=== PATIENT | male | born 1955 | race Caucasian/White ===

== ENCOUNTER 2018-12-02 20:57 | Emergency (ER) | payer OTHER ==
--- OUTSIDE RECORDS SUMMARY | 2018-12-02 21:07 | XMS REPORT | Summary of Care ---
:1955 Author Organization [facility] Address [address] [address] Care Team Providers Name Role Phone Bethany Jack MD Primary Care Provider Reason for Referral Refer to Department Only (Routine) Status Reason Specialty Diagnoses / Referred By Referred To Procedures Contact Contact Pending GASTROENTEROLOGY / Diagnoses Ulcerative rectosigmoiditis with complication (HCC) Awais Maria Gastroenterology Guerda Garcia DRIVER HELPER logy/Hepatol [address] [place] [address] Road Phone: [place], [place] [phone] Fax: Scheduling Instructions Is the patient on cpap machine?No Is the patient on oxygen?No BP 122/80 | Pulse 78 | Temp 97.3 F (36.3 C) | Ht 5' 7" (1.702 m) | Wt 152 lb 8 oz (69.2 kg) | BMI 23.88 kg/m BMI Readings from Last 4 Encounters: 10/11/18 : 23.88 kg/m 09/12/18 : 23.34 kg/m 07/18/18 : 23.81 kg/m 07/04/18 : 23.92 kg/m Controlled Substance Medications: Anticoagulant Medications: Psychiatric/Antianxiety Medications: Antiretroviral Medications: Reason for Visit Reason Comments Follow-up 1-month follow-up on ulcerative rectosigmoiditis Encounter Details Date Type Department Care Team Description 10/11/2018 Office Visit [facility] Gastroenterology/He Kim Payne NP rectosigmoiditis with patology [address] [facility] complication (HCC) [address] [facility] [place] [address] (Primary Dx) [place] [address] [phone] Allergies Active Allergy Reactions Severity Noted Date Comments Seasonal Unknown Reaction 06/10/2015 documented as of this encounter (statuses as of 10/11/2018) Medications Medication Sig Dispensed Refills Start End Date Status Date Omeprazole delayed Take 1 Cap by 30 Cap 11 Active rel cap 40 MG Oral mouth DAILY. 9 CAPSULE DELAYED RELEASEIndications: Gastroesophageal reflux disease without esophagitis ondansetron (ZOFRAN) TAKE 1 TABLET 30 Tab 0 Active 4 MG Oral BY MOUTH 9 TabIndications: EVERY 8 HOURS Ulcerative NEEDED FOR rectosigmoiditis with NAUSEA AND complication (HCC) VOMITING Mesalamine 1.2 g Oral TAKE 4 120 Tab 5 Active Tab EC TABLETS BY 9 MOUTH EVERY DAY AT 7 A.M. ON AN EMPTY STOMACH celeCOXIB (CELEBREX) TAKE 1 30 Cap 5 10/12/19 Discontinued 200 MG Oral Cap CAPSULE BY 9 19 MOUTH ONCE A DAY NEEDED FOR PAIN Tofacitinib Citrate Take 1 Tab by 60 Tab 1 10/10/19 Discontinued (XELJANZ) 10 MG Oral mouth TWICE 9 19 (Reorder) TabIndications: DAILY. Ulcerative rectosigmoiditis with complication (HCC) documented as of this encounter (statuses as of 10/11/2018) Active Problems Problem Noted Date Unresponsive episode 05/26/2018 Primary osteoarthritis of left hip 02/21/2017 Overview: Added automatically from request for surgery [id number] History of basal cell carcinoma 07/21/2016 Ulcerative colitis without complications 06/16/2016 Overview: Colonoscopy 07/2015 Rupture of right proximal biceps tendon 06/10/2016 History of colonic polyps 06/10/2015 Left hip pain 06/10/2015 Seasonal allergies 06/10/2015 Atopic dermatitis 06/10/2015 Umbilical abnormality 06/10/2015 documented as of this encounter (statuses as of 10/11/2018) Immunizations Name Administration Dates Next Due Influenza (IM) Preservative Free 03/21/2018, 11/29/2016 MMR VACCINE 10/26/2016 PNEUMOCOCCAL POLYSACCHARIDE VACCINE 09/30/2016 TDAP Vaccine 09/30/2016 documented as of this encounter Social History Tobacco Use Types Packs/Day Years Used Date Never Smoker Smokeless Tobacco: Never Used Alcohol Use Drinks/Week oz/Week Comments Yes 5-6 Cans of beer 5.0 - 6.0 Sex Assigned at Date Recorded Not on file Job Start Date Occupation Industry Not on file Not on file Not on file Travel History Travel Start Travel End No recent travel history available. documented as of this encounter Last Filed Vital Signs Vital Sign Reading Time Taken Comments Blood Pressure 122/80 10/11/2018 8:21 AM EDT Pulse 78 10/11/2018 8:21 AM EDT Temperature 36.3 10/11/2018 8:21 AM EDT C (97.3 F) Respiratory Rate - - Oxygen Saturation - - Inhaled Oxygen Concentration - - Weight 69.2 kg (152 lb 8 oz) 10/11/2018 8:21 AM EDT Height 170.2 cm (5' 7") 10/11/2018 8:21 AM EDT Body Mass Index 23.88 10/11/2018 8:21 AM EDT documented in this encounter Patient Instructions Patient InstructionsKim Maria NP - 10/11/2018 8:20 AM EDT1. Labs today 2. Stool sample as soon as you can provide 3. Will continue the Xeljanz at 10mg daily 4. Will need to reassess effect again in 1-2 months, by repeating the above testing 5. Will plan for colonoscopy at some time in the upcoming year Thank you for choosing the [facility] for your needs today! -Kim Maria N.PMary , Please call if you need to cancel or change your appt. time. Thank you for choosing [facility] for your health care needs, and for consulting with [facility] today. You may receive a survey following this visit, or after an upcoming hospital stay. As easy as it is to feel overloaded with surveys, we are required to send them out randomly and they do provide important feedback so that we may serve your needs in the best way. Please do take the few minutes required to complete the survey if you receive one. We get them too, after seeing the doctor, and they only take a few minutes to complete. documented in this encounter Progress Notes Kim Maria NP - 10/11/2018 8:20 AM EDT PATIENT:Johny Freeman : 1955 DATE OF SERVICE:10/11/2018 Chief Complaint Patient presents with Follow-up 1-month follow-up on ulcerative rectosigmoiditis REFERRING PROVIDER: Kim Maria PRIMARY CARE PHYSCIAN: Bethany Jack SUBJECTIVE: Johny Freeman is a very pleasant 63-y.o. male who presents for routine follow up of Ulcerative Colitis . Currently he moves his bowels 5-6 times per day, normal is 2 times per day. There has been no blood. Is again having nocturnal symptoms. He denies oral ulcers, skin ulcers, back pain, red eyes, burning or itching of eyes, vision changes, fevers, chills, night-sweats, weight loss, nausea, vomiting, melena, hematochezia, hematemesis, dysuria, pyuria, hematuria, joint pains, acholic or juanita colored stools or dark urine. Current Therapy: Xeljanz 10mg daily, and Lialda 4 caps daily Previously failed: Jimena, Iqra, Darrion, Lei Last colonoscopy: 2015 Past GI surgeries: none Smoking history: never QUISPE scoring = 4, indicating mild activity Past Medical History: Diagnosis Date Basal cell carcinoma face Environmental allergies spring, fall History of colon polyps Shingles Ulcerative colitis without complications (HCC) 06/16/2016 Colonoscopy 07/2015 Umbilical abnormality oozing Past Surgical History: Procedure Laterality Date ANOSCOPY COLONOSCOPY 2010 5 yr f/u hx polyps EGD 2010 [place] MANIPULATION HIP JOINT W ANESTHESIA 2010 hip resurfacing - right [place] RECONSTRUCT SCAPHOID CARPAL W PROSTHESIS Social History Socioeconomic History Marital status: Spouse name: Not on file Number of children: Not on file Years of education: Not on file Highest education level: Not on file Occupational History Not on file Social Needs Financial resource strain: Not on file Food insecurity: Worry: Not on file Inability: Not on file Transportation needs: Medical: Not on file Non-medical: Not on file Tobacco Use Smoking status: Never Smoker Smokeless tobacco: Never Used Substance and Sexual Activity Alcohol use: Yes Alcohol/week: 5.0 - 6.0 standard drinks Types: 5 - 6 Cans of beer per week Drug use: Yes Frequency: 7.0 times per week Types: Marijuana Sexual activity: Yes Lifestyle Physical activity: Days per week: Not on file Minutes per session: Not on file Stress: Not on file Relationships Social connections: Talks on phone: Not on file Gets together: Not on file Attends gnosticist service: Not on file Active member of club or organization: Not on file Attends meetings of clubs or organizations: Not on file Relationship status: Not on file Intimate partner violence: Fear of current or ex partner: Not on file Emotionally abused: Not on file Physically abused: Not on file Forced sexual activity: Not on file Other Topics Concern Back Care Not Asked Bike Helmet Not Asked Blood Transfusions Not Asked Caffeine Concern Not Asked Exercise Not Asked Hobby Hazards Not Asked International Travel Not Asked Service Not Asked Occupational Exposure Not Asked Seat Belt Not Asked Self-Exams Not Asked Sleep Concern Not Asked Special Diet Not Asked Stress Concern Not Asked Weight Concern Not Asked Social History Narrative Not on file Seasonal Current Outpatient Medications Medication Sig Mesalamine 1.2 g Oral Tab EC TAKE 4 TABLETS BY MOUTH EVERY DAY AT 7 A.M. ON AN EMPTY STOMACH Omeprazole delayed rel cap 40 MG Oral CAPSULE DELAYED RELEASE Take 1 Cap by mouth DAILY. ondansetron (ZOFRAN) 4 MG Oral Tab TAKE 1 TABLET BY MOUTH EVERY 8 HOURS NEEDED FOR NAUSEA AND VOMITING XELJANZ 10 MG Oral Tab TAKE 1 TABLET BY MOUTH TWICE A DAY No current facility-administered medications for this visit. REVIEW OF SYSTEMS Negative, except that mentioned above. OBJECTIVE: BP 122/80 | Pulse 78 | Temp 97.3 F (36.3 C) | Ht 5' 7" (1.702 m) | Wt 152 lb 8 oz (69.2 kg) | BMI 23.88 kg/m PHYSICAL EXAM GENERAL: alert, oriented, no acute distress. HEENT: No scleral icterus, MMM Psych: Affect normal Neck: no lymphadenopathy LUNGS: clear to auscultation bilaterally. HEART: regular rhythm, no murmurs, no gallops, no rubs. ABDOMEN: general exam: soft, non-tender, non-distended, without masses or organomegaly, normal active bowel sounds, Castro's sign negative. Extrmities: no edema Skin: clear Neuro: gait normal, a&o x 3 RECTAL: exam deferred. IMPRESSION/PLAN ICD-9-CM ICD-10-CM 1. Ulcerative rectosigmoiditis with complication (HCC) 556.3 K51.319 CBC NO DIFFERENTIAL COMPREHENSIVE METABOLIC PANEL SEDIMENTATION RATE C-REACTIVE PROTEIN CALPROTECTIN, STOOL STOOL CULTURE REFER TO GI COLONOSCOPY Patient Instructions 1. Labs today 2. Stool sample as soon as you can provide 3. Will continue the Xeljanz at 10mg daily 4. Will need to reassess effect again in 1-2 months, by repeating the above testing 5. Will plan for colonoscopy at some time in the upcoming year Thank you for choosing the [facility] for your needs today! -Kim TobiasPMary , Please call if you need to cancel or change your appt. time. Thank you for choosing [facility] for your health care needs, and for consulting with [facility] today. You may receive a survey following this visit, or after an upcoming hospital stay. As easy as it is to feel overloaded with surveys, we are required to send them out randomly and they do provide important feedback so that we may serve your needs in the best way. Please do take the few minutes required to complete the survey if you receive one. We get them too, after seeing the doctor, and they only take a few minutes to complete. AUTHOR: Kim Maria NP 10/11/2018 08:41 documented in this encounter Plan of Treatment Date Type Specialty Care Team Description 12/06/2018 Office Visit Gastroenterology Kim Maria NP [address] [address] [phone] Name Type Priority Associated Diagnoses Date/Time CBC NO DIFFERENTIAL Lab Routine Ulcerative rectosigmoiditis 10/11/2018 9: 02 AM with complication (HCC) EDT COMPREHENSIVE METABOLIC Lab Routine Ulcerative rectosigmoiditis 10/11/2018 9:02 AM PANEL with complication (HCC) EDT SEDIMENTATION RATE Lab Routine Ulcerative rectosigmoiditis 10/11/2018 9: 02 AM with complication (HCC) EDT C-REACTIVE PROTEIN Lab Routine Ulcerative rectosigmoiditis 10/11/2018 9: 02 AM with complication (HCC) EDT Name Type Priority Associated Diagnoses Order Schedule CBC NO DIFFERENTIAL Lab Routine Ulcerative Expected: rectosigmoiditis with 10/10/2018 complication (HCC) (Approximate), Expires: 05/08/2019 COMPREHENSIVE Lab Routine Ulcerative Expected: METABOLIC PANEL rectosigmoiditis with 10/10/2018 complication (HCC) (Approximate), Expires: 10/11/2019 SEDIMENTATION RATE Lab Routine Ulcerative Expected: rectosigmoiditis with 10/10/2018 complication (HCC) (Approximate), Expires: 10/11/2019 C-REACTIVE PROTEIN Lab Routine Ulcerative Expected: rectosigmoiditis with 10/10/2018 complication (HCC) (Approximate), Expires: 10/11/2019 CALPROTECTIN, STOOL Lab Routine Ulcerative Expected: rectosigmoiditis with 10/11/2018 complication (HCC) (Approximate), Expires: 04/13/2019 STOOL CULTURE Lab Routine Ulcerative 1 Occurrences rectosigmoiditis with starting complication (HCC) 10/11/2018 until 04/13/2019 COLONOSCOPY Diagnostic/Surgic Routine Ulcerative Ordered: al Procedures rectosigmoiditis with 10/11/2018 complication ([facility]) CALPROTECTIN, STOOL Lab Routine Ulcerative Expected: rectosigmoiditis with 11/11/2018 complication (HCC) (Approximate), Expires: 12/11/2018 C-REACTIVE PROTEIN Lab Routine Ulcerative Expected: rectosigmoiditis with 11/11/2018 complication (HCC) (Approximate), Expires: 12/11/2018 SEDIMENTATION RATE Lab Routine Ulcerative Expected: rectosigmoiditis with 11/11/2018 complication (HCC) (Approximate), Expires: 12/11/2018 CBC NO DIFFERENTIAL Lab Routine Ulcerative Expected: rectosigmoiditis with 11/11/2018 complication (HCC) (Approximate), Expires: 12/11/2018 COMPREHENSIVE Lab Routine Ulcerative Expected: METABOLIC PANEL rectosigmoiditis with 11/11/2018 complication (HCC) (Approximate), Expires: 12/11/2018 Name Type Priority Associated Diagnoses Order Schedule REFER TO GI Referral Routine Ulcerative rectosigmoiditis with Expected: , complication (HCC) Expires: 10/12/2019 Health Maintenance Due Date Last Done Comments DEPRESSION SCREENING 1969 ZOSTER IMMUNIZATION SERIES (1 07/18/2007 of 2) INFLUENZA VACCINE (#1) 2018 03/21/2018, 11/29/2016 LIPID DISORDER SCREENING 09/12/2023 09/11/2018, 07/18/2018, 06/22/2016 COLONOSCOPY SCREENING 07/29/2025 07/30/2015 PNEUMOCOCCAL 0-64 YRS Aged Out 09/30/2016 No longer eligible based on patient's age to complete this topic HPV IMMUNIZATION SERIES Aged Out No longer eligible based on patient's age to complete this topic MENINGOCOCCAL VACCINE IMM Aged Out No longer eligible based on patient's age to complete this topic documented as of this encounter Results Not on filedocumented in this encounter Visit Diagnoses Diagnosis Ulcerative rectosigmoiditis with complication (HCC) - Primary documented in this encounter Insurance Payer Benefit Plan / Subscriber ID Effective Phone Address Type Group Dates COMMERCIAL COMMERCIAL xxxx-xxxx 2017-Pres Commercial GENERIC GENERIC PLAN ent (Home) [facility] [phone] [place], [place] (Work) [id number] documented as of this encounter Advance Directives Code Status Date Activated Date Inactivated Comments Full Code 05/26/2018 9:58 PM 05/27/2018 1:45 PM Does the patient have decision making capacity? Yes Order was discussed with: Patient I discussed all options and patient/surrogate requested and agreed to: Full Code
--- OUTSIDE RECORDS SUMMARY | 2018-12-02 21:07 | XMS REPORT | Summary of Care ---
:1955 Author Organization [facility] Address [address] [facility] [place] [address] Care Team Providers Name Role Phone Bethany Jack Primary Care Provider Reason for Visit Reason Comments Follow-up 2-month follow-up on crohn's. Encounter Details Date Type Department Care Team Description 11/27/2018 Office Visit Awais Maria, Ulcerative rectosigmoiditis with complication (HCC) (Primary Dx); Gastroenterology/He Kim Payne NP Tick bite, initial encounter; patology 1 [facility] Functional gastrointestinal symptoms [address] [facility] [place] [address] [place] [address] [phone] Allergies Active Allergy Reactions Severity Noted Date Comments Seasonal Unknown Reaction 06/10/2015 documented as of this encounter (statuses as of 11/27/2018) Medications Medication Sig Dispensed Refills Start End Date Status Date Omeprazole delayed Take 1 Cap by 30 Cap 11 Active rel cap 40 MG Oral mouth DAILY. 9 CAPSULE DELAYED RELEASEIndications: Gastroesophageal reflux disease without esophagitis ondansetron (ZOFRAN) Take 4 mg by 30 Tab 0 Active 4 MG Oral mouth EVERY 9 TabIndications: EIGHT HOURS Ulcerative NEEDED rectosigmoiditis with (nausea). complication (HCC) PROCEDURE (MEDICATION Take 1 Each 30 Each 0 Active COMMUNICATION by mouth 9 ORDER)Indications: EVERY Ulcerative Colitis BEDTIME. Indications: Ulcerated Colon Tofacitinib Citrate 5 Take 1 Tab by 60 Tab 1 Active MG Oral mouth TWICE 9 TabIndications: DAILY. Ulcerative rectosigmoiditis with complication (HCC) doxycycline Take 200 mg 2 Tab 0 Active (VIBRAMYCIN) 100 MG by mouth 9 Oral TabIndications: DAILY. Tick bite, initial encounter Mesalamine 1.2 g Oral Take 4 Tabs 120 Tab 5 Active Tab EC by mouth 9 DAILY. Mesalamine 1.2 g Oral TAKE 4 120 Tab 5 11/28/19 Discontinued Tab EC TABLETS BY 9 19 (Reorder) MOUTH EVERY DAY AT 7 A.M. ON AN EMPTY STOMACH XELJANZ 10 MG Oral TAKE 1 TABLET 60 Tab 1 11/28/19 Discontinued TabIndications: BY MOUTH 9 19 Ulcerative TWICE A DAY rectosigmoiditis with complication (HCC) predniSONE Take 50mg 245 Tab 0 11/28/19 Discontinued (DELTASONE) 5 MG Oral daily x 7 9 19 Tab days,40mg daily x 7 d.,30mg daily x 7 d.,20mg daily x 7 d., 15mg daily x 7 d.,10mg daily x 7 d., 5mg daily x7 d documented as of this encounter (statuses as of 11/27/2018) Active Problems Problem Noted Date Unresponsive episode 05/26/2018 Primary osteoarthritis of left hip 02/21/2017 Overview: Added automatically from request for surgery [id number] History of basal cell carcinoma 07/21/2016 Ulcerative colitis without complications 06/16/2016 Overview: Colonoscopy 07/2015 Rupture of right proximal biceps tendon 06/10/2016 History of colonic polyps 06/10/2015 Left hip pain 06/10/2015 Seasonal allergies 06/10/2015 Atopic dermatitis 06/10/2015 Umbilical abnormality 06/10/2015 documented as of this encounter (statuses as of 11/27/2018) Immunizations Name Administration Dates Next Due Influenza [...] Sign Reading Time Taken Comments Blood Pressure 112/72 11/27/2018 8:29 AM EDT Pulse 72 11/27/2018 8:29 AM EDT Temperature 36.7 11/27/2018 8:29 AM EDT C (98 F) Respiratory Rate - - Oxygen Saturation - - Inhaled Oxygen Concentration - - Weight 67.4 kg (148 lb 8 oz) 11/27/2018 8:29 AM EDT Height 170.2 cm (5' 7") 11/27/2018 8:29 AM EDT Body Mass Index 23.26 11/27/2018 8:29 AM EDT documented in this encounter Patient Instructions Patient InstructionsKim Maria NP - 11/27/2018 8:20 AM EDT1. Schedule colonoscopy as soon as possible to assess the colitis 2. Decrease the Xeljanz to 5mg twice daily 3. Take prophylactic Doxycycline 200mg once for the tick bite 4. future plans pending colonoscopy results Thank you for choosing the [facility] for your needs today! -Kim Maria NBessy , Please call if you need to cancel or change your appt. time. Thank you for choosing [facility] for your health care needs, and for consulting with Health system today. You may receive a survey following [...] encounter Progress Notes Kim Maria NP - 11/27/2018 8:20 AM EDT PATIENT:Johny Freeman : 1955 DATE OF SERVICE:11/27/2018 Chief Complaint Patient presents with Follow-up 2-month follow-up on crohn's. REFERRING PROVIDER: Kim Maria PRIMARY CARE PHYSCIAN: Bethany Jack SUBJECTIVE: Johny Freeman is a very pleasant 63-y.o. male who presents for routine follow up of Ulcerative Colitis, with functional GI symptoms overlap. Started new therapy of Xeljanz 3 Months ago, initially felt improvement with resolution of bleeding, but has continues with frequency. Serum and stool inflammatory markers have been climbing. Component Latest Ref Rng & Units 10/11/2018 10/11/2018 10/13/2018 11/17/201811/17/201811/17/2018 9:02 AM 9:02 AM 7:26 AM 4:50 AM 9:17 AM 9:17 AM C-Reactive Protein <1.00 mg/dl 2.00 (H) 2.30 (H) ESR 0 - 20 MM/HR 55 (H) 43 (H) CALPROTECTIN, STOOL mcg/g 797.7 (H) 1238.6 (H) Currently he moves his bowels 8 times per day, normal is 2 times per day. Since the onset of colitis4 years ago he has not had significant improvement in quantity of BM, reports he has numerous trips to the [place] to pass gas and mucus. BMs have been formed without blood. He also reports excessive gas, and AM belching with dry heaving at times. This has been worse in the past few weeks but he admits to being stressed over insurance coverage, which recently has resolved and so to are his UGI symptoms. He has also had an increase in joint pains, has been taking Tylenol for this. This morning awoke with a tick bite, reports he walked his dog last evening. Tick was not engorged. There has been no blood or nocturnal symptoms. He denies oral ulcers, skin ulcers, back pain, red eyes, burning or itching of eyes, vision changes, fevers , chills, night-sweats, weight loss, nausea, melena, hematochezia, hematemesis , dysuria, pyuria, hematuria, acholic or juanita colored stools or darkurine. Current Therapy: Xeljanz 10mg BID, has been on Lialda until he ran out 1 week ago Last stool study results: 09/2018 Influenza, Pneumovax, Tdap, Hep B vaccination: UTD Dermatology annual screening: done Last colonoscopy: 2015, needs repeat, awaiting insurance approval Past GI surgeries: none Smoking history: none QUISPE scoring = 5 Failed therapies: Topical Mesalamines, steroid enemas and suppositories, Budesonide, Prednisone, Humira, and Remicade Past Medical History: Diagnosis Date Basal cell carcinoma face Environmental allergies spring, fall History of colon polyps Shingles Ulcerative colitis without complications (HCC) 06/16/2016 Colonoscopy 07/2015 Umbilical abnormality oozing Past Surgical History: Procedure Laterality Date ANOSCOPY COLONOSCOPY 2010 5 yr f/u hx polyps EGD 2010 OR MANIPULATION HIP JOINT W ANESTHESIA 2010 hip resurfacing - right OR RECONSTRUCT SCAPHOID CARPAL W PROSTHESIS Social History [...] file Gets together: Not on file Attends congregational service: Not on file Active member of [...] file Seasonal Current Outpatient Medications Medication Sig doxycycline (VIBRAMYCIN) 100 MG Oral Tab Take 200 mg by mouth DAILY. Mesalamine 1.2 g Oral Tab EC TAKE 4 TABLETS BY MOUTH EVERY DAY AT 7 A.M. ON AN EMPTY STOMACH Omeprazole delayed rel cap 40 MG Oral CAPSULE DELAYED RELEASE Take 1 Cap by mouth DAILY. ondansetron (ZOFRAN) 4 MG Oral Tab Take 4 mg by mouth EVERY EIGHT HOURS NEEDED (nausea). PROCEDURE (MEDICATION COMMUNICATION ORDER) Take 1 Each by mouth EVERY BEDTIME. Indications: Ulcerated Colon Tofacitinib Citrate 5 MG Oral Tab Take 1 Tab by mouth TWICE DAILY. No current facility-administered medications for this visit. REVIEW OF SYSTEMS Negative, except that mentioned above. OBJECTIVE: BP 112/72 | Pulse 72 | Temp 98 F (36.7 C) | Ht 5' 7" (1.702 m) | Wt 148 lb 8 oz (67.4 kg) | BMI 23.26 kg/m PHYSICAL EXAM GENERAL: alert, oriented, no acute distress. HEENT: No scleral icterus, MMM Psych: Affect normal Neck: no lymphadenopathy LUNGS: clear to auscultation bilaterally. HEART: regular rhythm, no murmurs, no gallops, no rubs. ABDOMEN: general exam: soft, mild LLQ-tenderness, non-distended, without masses or organomegaly, normal active bowel sounds, Castro's sign negative. Extrmities: no edema Skin: clear Neuro: gait normal, a&o x 3 RECTAL: exam deferred. IMPRESSION/PLAN ICD-9-CM ICD-10-CM 1. Ulcerative rectosigmoiditis with complication (HCC) 556.3 K51.319 Tofacitinib Citrate 5 MG Oral Tab 2. Tick bite, initial encounter 919.4 W57.XXXA doxycycline (VIBRAMYCIN) 100 MG Oral Tab E906.4 3. Functional gastrointestinal symptoms 536.9 K30 Due to multiple failed therapies, will need to assess disease activity vs. Functional overlap beforechanging therapy. Patient Instructions 1. Schedule colonoscopy as soon as possible to assess the colitis 2. Decrease the Xeljanz to 5mg twice daily 3. Take prophylactic Doxycycline 200mg once for the tick bite 4. future plans pending colonoscopy results Thank you for choosing the [facility] for your needs today! -Kim Maria N.P. , Please call if you need to cancel or change your appt. time. Thank you for choosing [facility] for your health care needs, and for consulting with Health system today. You may receive a survey following [...] minutes to complete. AUTHOR: Kim Maria NP 11/27/2018 09:02 documented in this encounter Plan of Treatment Date Type Specialty Care Team Description 12/07/2018 GI Procedure Gastroenterology Iliana Harris MD [address] [place] [address] [phone] Health Maintenance Due Date Last Done Comments [...] Ulcerative rectosigmoiditis with complication (HCC) - Primary Tick bite, initial encounter Functional gastrointestinal symptoms Unspecified functional disorder of stomach documented in this encounter Insurance Payer Benefit Plan / Subscriber ID Effective Dates Phone Address Type Group [employer] COMMERCIAL AETNA xxxxxxxxxx 2018-Present [employer] (Home) [place] [id number] [place], [place] (Work) [id number] documented as of this encounter Advance Directives Code Status Date Activated Date Inactivated Comments Full Code 05/26/2018 9:58 PM 05/27/2018 1:45 PM Does the patient have decision making capacity? Yes Order was discussed with: Patient I discussed all options and patient/surrogate requested and agreed to: Full Code
[2018-12-02] MEDS ORDERED: NS 0.9% 1000 ML** 2,000 ML IV ONE (21:32)
[2018-12-02] MEDS ORDERED: Dicyclomine CAP* 10 MG PO ONE (21:32)
[2018-12-02] MEDS ORDERED: Ondansetron INJ* 2 MG/ML VIAL IV ONE (21:32)
--- NOTE | 2018-12-02 21:37 | ED ---
GI/ HPI - HPI Summary HPI Summary: This patient is a 63 year old M presenting to [facility] accompanied by with a chief complaint of constant vomiting since 1500, today. Pt has had watery diarrhea, fever, cramping in abdomen and chills. Pt has PMHx of ulcerative colitis which is currently not responding well to medication and he is constantly changing medications; however he reports his current symptoms are different from normal, as he usually only throws up in the morning. He has vomited up everything he has tried to eat today. He reports he felt fine on . Pt thinks he may have Lyme disease, as he was bitten by a tick on . However he did go to his PCP and received prophylaxis. - History of Current Complaint Chief Complaint: EDNauseaVomitDiarrh Time Seen by Provider: 12/02/18 21:25 Stated Complaint: TICK BITE W/NAUSEA PER PT Hx Obtained From: Patient Onset/Duration: Started Hours Ago Timing: Constant Severity: Severe Current Severity: Severe Pain Intensity: 8 Location of Pain: Diffuse Pain Characteristics: Cramping Associated Signs and Symptoms: Positive: Nausea, Vomiting, Diarrhea, Fever, Chills, Abdominal Pain Aggravating Factor(s): Nothing - Allergy/Home Medications Allergies/Adverse Reactions: Allergies Allergy/AdvReac Type Severity Reaction Status Date / Time No Known Allergies Allergy Verified 04/27/13 13:32 Home Medications: Home Medications Mesalamine 4 tab PO DAILY 12/02/18 [History Confirmed 12/02/18] Omeprazole 40 mg PO DAILY 12/02/18 [History Confirmed 12/02/18] Tofacitinib Citrate [Xeljanz] 5 mg PO BID 12/02/18 [History Confirmed 12/02/18] PMH/Surg Hx/FS Hx/Imm Hx Endocrine/Hematology History: Denies: Hx Diabetes, Hx Thyroid Disease Cardiovascular History: Denies: Hx Hypertension Respiratory History: Denies: Hx Asthma, Hx Chronic Obstructive Pulmonary Disease (COPD) GI History: Reports: Hx Ulcer Musculoskeletal History: Reports: Other Musculoskeletal History - hip problems Sensory History: Reports: Hx Contacts or Glasses - glasses Opthamlomology History: Reports: Hx Contacts or Glasses - glasses - Cancer History Cancer Type, Location and Year: basal cell carcinoma - Surgical History Surgery Procedure, Year, and Place: right hip replacement 2009, tonsillectomy as a child Infectious Disease History: No Infectious Disease History: Reports: Hx Shingles Denies: Hx Hepatitis, Hx Human Immunodeficiency Virus (HIV), History Other Infectious Disease, Traveled Outside the [place] in Last 30 Days - Family History Known Family History: Negative: Diabetes - Social History Alcohol Use: Weekly Substance Use Type: Reports: None Smoking Status (MU): Never Smoked Tobacco Review of Systems Positive: Fever, Chills Positive: Abdominal Pain, Vomiting, Diarrhea, Nausea All Other Systems Reviewed And Are Negative: Yes Physical Exam - Summary Physical Exam Summary: Appearance: Well-appearing, Well-nourished, lying in bed comfortably Skin: Warm, dry, no obvious rash Eyes: sclera anicteric, no conjunctival pallor ENT: mucous membranes moist, pharynx appears normal Neck: Supple, nontender Respiratory: Clear to auscultation, no signs of respiratory distress Cardiovascular: Normal S1, S2. No murmurs. Normal distal pulses in tibial and radial bilaterally. Abdomen: Soft, nontender, normal active bowel sounds present Musculoskeletal: Normal, Strength/ROM Intact Neurological: A&Ox3, awake and alert, mentation is normal, speech is fluent and appropriate Psychiatric: affect is normal, does not appear anxious or depressed Triage Information Reviewed: Yes Vital Signs On Initial Exam: Initial Vitals Temp Pulse Resp BP Pulse Ox 98.7 F 66 18 142/77 95 12/02/18 20:58 12/02/18 20:58 12/02/18 20:58 12/02/18 20:58 12/02/18 20:58 Vital Signs Reviewed: Yes Procedures - Sedation Patient Received Moderate/Deep Sedation with Procedure: No Diagnostics - Vital Signs Vital Signs Temp Pulse Resp BP Pulse Ox 12/02/18 20:58 98.7 F 66 18 142/77 95 - Laboratory Result Diagrams: 12/02/18 21:53 12/02/18 21:53 Lab Statement: Any lab studies that have been ordered have been reviewed, and results considered in the medical decision making process. Re-Evaluation - Re-Evaluation First Eval Re-Evaluation Time: 00:02 Comment: Discussed results and plan of care with pt. GIGU Course/Dx - Course Course Of Treatment: This patient is a 63 year old M presenting to [facility] accompanied by with a chief complaint of constant vomiting since 1500, today. Pt has had watery diarrhea, fever, cramping in abdomen and chills. Pt has PMHx of ulcerative colitis which is currently not responding well to medication and he is constantly changing medications; however he reports his current symptoms are different from normal, as he usually only throws up in the morning. He has vomited up everything he has tried to eat today. He reports he felt fine on 12/01/18. Pt thinks he may have Lyme disease, as he was bitten by a tick on 11/26/18. However he did go to his PCP and received prophylaxis. Physical exam findings. nml. Blood work obtained. WBC is 16.2, Hgb is 12.5, Hct is 38, MPV is 6.6, BUN/Creatinine Ratio is 20.4, Glucose is 152, C-Reactive Protein is 20.17. In the ED course the patient was given Bentyl, fluids, and Zofran. Patient will be discharged. The patient is agreeable with this plan. - Diagnoses Provider Diagnoses: Acute vomiting, Gastroenteritis Discharge ED - Sign-Out/Discharge Documenting (check all that apply): Patient Departure - Discharge - Discharge Plan Condition: Improved Disposition: HOME Prescriptions: Ondansetron ODT TAB* [Zofran 4 MG Odt TAB*] 8 mg PO Q6H PRN #12 tab.odt PRN Reason: Nausea Patient Education Materials: Acute Nausea and Vomiting (ED) Referrals: Waleska Huddleston MD [Primary Care Provider] - - Billing Disposition and Condition Condition: IMPROVED Disposition: Home - Attestation Statements Document Initiated by Janine: Yes Documenting Scribe: Jackie Petersen Provider For Whom Janine is Documenting (Include Credential): Gevoanni Tapia MD Scribe Attestation: Jackie Kiser, scribed for Geovanni Tapia MD on 12/03/18 at 2054. Scribe Documentation Reviewed: Yes Provider Attestation: The documentation as recorded by the Jackie king accurately reflects the service I personally performed and the decisions made by me, Geovanni Taipa MD Status of Scribe Document: Viewed
[2018-12-02 22:01] LABS: ABS Lymphocytes 0.5 10^3/ul (1.0-4.8); ABS Monocytes 0.8 10^3/ul (0-0.8); ABS Neutrophils 14.8 10^3/ul (1.5-7.7); Eosinophil % 0.1 %; Hematocrit 38 % (42-52); Hemoglobin 12.5 g/dL (14.0-18.0); Lymphocyte % 3.1 %; Mean Corpuscular HGB Conc 33 g/dL (31-36); Mean Corpuscular Hemoglobin 28 pg (27-31); Mean Corpuscular Volume 84 fL (80-94); Mean Platelet Volume 6.6 fL (7.4-10.4); Nucleated Red Blood Cells % 0.1; Platelet Count 353 10^3/uL (150-450); Red Cell Distribution Width 14 % (10-15); White Blood Count 16.2 10^3/uL (3.5-10.8)
[2018-12-02 22:19] LABS: Albumin 4.2 g/dL (3.2-5.2); Albumin/Globulin Ratio 1.2 (1-3); BUN/Creatinine Ratio 20.4 (8-20); C Reactive Protein 20.17 mg/L (<8.01); Calcium 9.3 mg/dL (8.6-10.3); EGFR African American 99.9 (>60); EGFR Non-African American 82.6 (>60); Globulin 3.5 g/dL (2-4); Potassium 3.5 mmol/L (3.5-5.0); Total Bilirubin 0.5 mg/dL (0.2-1.0); Total Protein 7.7 g/dL (6.4-8.9)
[2018-12-03 00:58] VITALS: BP 136/80
== END 2018-12-03 00:55 | disposition home or self-care (01) ==
LOC: ED 20:57
DX: K52.9 Noninfective gastroenteritis and colitis, unspecified (principal); R11.2 Nausea with vomiting, unspecified; R10.9 Unspecified abdominal pain; Z96.641 Presence of right artificial hip joint
CPT/HCPCS: 36415; 80053; 85025; 86140; 96361; 96374; 99282; A9270-GY; J2405

== ENCOUNTER 2019-02-01 07:30 | Inpatient (IN) | payer OTHER ==
--- NOTE | 2019-01-23 13:05 | HP ---
HISTORY AND PHYSICAL: DATE OF ADMISSION/SURGERY: 02/01/19 DATE OF OFFICE VISIT: 01/22/19 SURGEON: Kimberlyn Martin MD * (DICTATED BY GABBY CURTIS) PROCEDURE: Left total hip arthroplasty. CHIEF COMPLAINT: Left hip pain. HISTORY OF PRESENT ILLNESS: Mr. Freeman is a 63-year-old gentleman with end- stage osteoarthritis of the left hip. He has failed conservative treatment and elected to proceed with a left total hip arthroplasty. PAST MEDICAL HISTORY: Ulcerative colitis, GERD and basal cell carcinoma. PAST SURGICAL HISTORY: Right hip resurfacing, tonsillectomy. CURRENT MEDICATIONS: 1. Tylenol as needed. 2. Omeprazole 40 mg a day. 3. Xeljanz 10 mg. 4. Lialda 1.2 g twice a day. 5. Naltrexone 4.5 mg q.h.s. 6. Mesalamine 1.2 g 4 tabs daily. 7. Zofran 4 mg daily. ALLERGIES: No known drug allergies. FAMILY HISTORY: Breast cancer and Parkinson's disease. SOCIAL HISTORY: He is a 63-year-old gentleman lives with his spouse. He does use marijuana and denies use of cigarettes and uses alcohol rarely. REVIEW OF SYSTEMS: A complete 14-point review of systems was reviewed with the patient, was positive for GERD. He denies a history of DVT, PE, hepatitis, HIV , or anesthesia problems. PHYSICAL EXAMINATION GENERAL: He is well developed, well nourished, in no acute distress. VITAL SIGNS: He is 66 inches tall, weighs 147 pounds, his blood pressure 118/60 , his heart rate 72. HEENT: Normocephalic, atraumatic. NECK: Supple. No palpable lymph nodes. PULMONARY: The lungs are clear to auscultation bilaterally. CARDIO: Regular rate and rhythm. Strong S1 and S2. ABDOMEN: Soft, nontender, nondistended. NEUROLOGICAL: He is alert and oriented x3. MUSCULOSKELETAL: Left lower extremity: The skin is intact. There are no open wounds or abrasions. He walks with an antalgic type gait, favoring his left hip. He has decreased internal and external rotation of the left hip. He is able to dorsiflex and plantarflex. He has a 2+ dorsalis pedis pulse and intact sensation. ASSESSMENT AND PLAN: Mr. Freeman is a 63-year-old gentleman with end-stage osteoarthritis of the left hip. He has failed conservative treatment and elected to proceed with a left total hip arthroplasty. The surgery is scheduled for 02/01/[address] Martin discussed the risks and benefits of the surgery at today's visit and all of his questions were answered. He will follow with Dr. Martin 2 weeks after the surgery. GABBY CURTIS [id number]/CPS #: [id number] MTDD
[~2019-02-01 07:30] MED LIST: Acetaminophen TAB* 325 MG PO ONE; Buffered Lidocaine 1% SYRIN* 1 ML/SYRINGE INTRADERM ONE; Dexamethasone TAB* 4 MG PO ONE; DiMENhydriNATE IV* 50 MG/ML VIAL IV PUSH PRN; Famotidine IV* 10 MG/ML 2 ML (20 mg) IV ONE; Gabapentin CAP(*) 300 MG PO ONE; Lactated Ringers 1000 ML Bag* 1,000 ML IV SCH; Naloxone* 0.4 MG/ML 1 ML VIAL IV PRN; Ondansetron ODT TAB* 4 MG PO ONE; PROCHLORPERAZINE INJ 5 MG/ML 2 ML VIAL IV PRN; Tranexamic Acid 1,000 MG in NS 0.9% 50 ML* (outpatient use) IV SCH; celeCOXIB CAP* 200 MG PO ONE; oxyCODONE TAB* 5 MG TAB PO PRN
[2019-02-01] MEDS ORDERED: Acetaminophen TAB* 325 MG ONE (08:50)
[2019-02-01] MEDS ORDERED: Dexamethasone TAB* 4 MG ONE (08:50)
[2019-02-01] MEDS ORDERED: Ondansetron ODT TAB* 4 MG ONE ×2 (08:50→10:06)
[2019-02-01] MEDS ORDERED: Gabapentin CAP(*) 300 MG ONE (08:50)
[2019-02-01] MEDS ORDERED: celeCOXIB CAP* 200 MG ONE (08:51)
[2019-02-01] MEDS ORDERED: ceFAZolin 2 GM in NS PREMIX(*) 2 GM/100 ML BAG IVPB ONE (08:51)
[2019-02-01] MEDS ORDERED: Famotidine IV* 10 MG/ML 2 ML (20 mg) ONE (08:51)
--- OUTSIDE RECORDS SUMMARY | 2019-02-01 09:38 | XMS REPORT | Continuity of Care Document ---
:1955 External Reference #:[id number] Author Name Mariah Joyce MD (transmitted by agent of provider Ivon Galdamez) Address [address], [place] [address] Care Team Providers Name Role Phone Prosper Lofton MD - Hospitalist Care Team Information Edge Inker [phone] Problems Active Problems Provider Date Localized, primary osteoarthritis of the pelvic Kimberlyn Martin M.D. Onset: region and thigh Social History Type Date Description Comments Sex Unknown ETOH Use Occasionally consumes alcohol Tobacco Use Start: Unknown Patient has never smoked Smoking Status Reviewed: 01/01/19 Patient has never smoked Exercise Type/Frequency Exercises regularly Allergies, Adverse Reactions, Alerts Description No Known Drug Allergies Medications Active Medications SIG Qnty Indications Ordering Provider Date Tylenol PM 2 by mouth every Unknown Tablets night at bedtime as needed Omeprazole Take 1 Capsule By Unknown 40mg Capsules Mouth Every Day DR Pham Unknown 10mg Tablets Lialda 2 twice a day Unknown 1.2gm Tablets Ondansetron HCL one by mouth Unknown 4mg every 8 hours as Tablets needed for nausea Naltrexone Low Dose Unknown 4.5mg Powder Immunizations CPT Code Status Date Vaccine Reaction Lot # 92495 Given 01/01/2019 Influenza Virus Vaccine, no immediate reaction. [id number] Quadrivalent (Cciiv4), dg Derived From Cell Vital Signs Date Vital Result Comment 01/01/2019 8:04am Height 66.25 inches 5'6.25" Weight 149.00 lb Heart Rate 60 /min BP Systolic Sitting 116 mmHg BP Diastolic Sitting 77 mmHg Body Temperature 97.0 F O2 % BldC Oximetry 97 % BMI (Body Mass Index) 23.9 kg/m2 12/13/2018 10:32am Height 66.25 inches 5'6.25" Weight 147.00 lb Heart Rate 72 /min BP Systolic 128 mmHg BP Diastolic 80 mmHg Body Temperature 97.6 F Pain Level 6 BMI (Body Mass Index) 23.5 kg/m2 Results Test Acquired Date Facility Test Result H/L Range Note Comp Metabolic 12/02/2018 [facility] Sodium 138 mmol/L Normal 135-[address] [place] [address] [phone] Potassium 3.5 mmol/L Normal 3.5-5.0 Chloride 103 mmol/L Normal 101-111 Co2 Carbon Dioxide 25 mmol/L Normal 22-32 Anion Gap 10 mmol/L Normal 2-11 Glucose 152 mg/dL High 70-100 Blood Urea Nitrogen 19 mg/dL Normal 6-24 Creatinine 0.93 mg/dL Normal 0.67-1.17 BUN/Creatinine Ratio 20.4 High 8-20 Calcium 9.3 mg/dL Normal 8.6-10.3 Total Protein 7.7 g/dL Normal 6.4-8.9 Albumin 4.2 g/dL Normal 3.2-5.2 Globulin 3.5 g/dL Normal 2-4 Albumin/Globulin Ratio 1.2 Normal 1-3 Total Bilirubin 0.50 mg/dL Normal 0.2-1.0 Alkaline Phosphatase 97 U/L Normal 34-104 Alt 17 U/L Normal 7-52 Ast 26 U/L Normal 13-39 Egfr Non- 82.6 >60 Egfr 99.9 >60 1 Laboratory test 12/02/2018 [facility] C Reactive 20.17 mg/L High <8.[address] [place] [address] [phone] CBC Auto Diff 12/02/2018 [facility] White Blood 16.2 High 3.5- 10.[address] Count 10^3/[place] [address] [phone] Red Blood Count 4.50 10^6/uL Normal 4.18-5.48 Hemoglobin 12.5 g/dL Low 14.0-18.0 Hematocrit 38 % Low 42-52 Mean Corpuscular Volume 84 fL Normal 80-94 Mean Corpuscular Hemoglobin 28 pg Normal 27-31 Mean Corpuscular HGB Conc 33 g/dL Normal 31-36 Red Cell Distribution Width 14 % Normal 10-15 Platelet Count 353 10^3/uL Normal 150-450 Mean Platelet Volume 6.6 fL Low 7.4-10.4 Abs Neutrophils 14.8 10^3/uL High 1.5-7.7 Abs Lymphocytes 0.5 10^3/uL Low 1.0-4.8 Abs Monocytes 0.8 10^3/uL Normal 0-0.8 Abs Eosinophils 0.0 10^3/uL Normal 0-0.6 Abs Basophils 0.0 10^3/uL Normal 0-0.2 Abs Nucleated RBC 0.0 10^3/uL Granulocyte % 91.4 % Lymphocyte % 3.1 % Monocyte % 5.1 % Eosinophil % 0.1 % Basophil % 0.3 % Nucleated Red Blood Cells % 0.1 1 Because ethnic data is not always readily available, this report includes an eGFR for both -Americans and non- Americans. The National Kidney Disease Education Program (NKDEP) does not endorse the use of the MDRD equation for patients that are not between the ages of 18 and 70, are , have extremes of body size, muscle mass, or nutritional status, or are non- or non-. According to the National Kidney Foundation, irrespective of diagnosis, the stage of the disease is based on the level of kidney function: Stage Description GFR(mL/min/1.73 m(2)) 1 Kidney damage with normal or decreased GFR 90 2 Kidney damage with mild decrease in GFR 60-89 3 Moderate decrease in GFR 30-59 4 Severe decrease in GFR 15-29 5 Kidney failure <15 (or dialysis) Procedures Date Code Description Status 01/01/2019 87254 EKG Tracing & Interpretation Completed Medical Devices Description No Information Available Encounters Type Date Location Provider Dx Diagnosis Office Visit 12/13/2018 [facility], S70.02xA Contusion of 10:15a at [facility] left hip, initial encounter M16.12 Unilateral primary osteoarthritis, left hip M25.552 Pain in left hip Office Visit 09/27/2018 9:30a [facility], M25.552 Pain in left at [place] M.DMary hip M16.12 Unilateral primary osteoarthritis, left hip Assessments Date Code Description Provider 01/01/2019 Z00.00 Encounter for general adult medical Mariah Joyce MD examination without abnormal findings 01/01/2019 Z01.818 Encounter for other preprocedural examination Mariah Joyce MD 01/01/2019 K51.90 Ulcerative colitis, unspecified, without Mariah Joyce MD complications 12/13/2018 S70.02xA Contusion of left hip, initial encounter Kimberlyn Martin M.D. 12/13/2018 M16.12 Unilateral primary osteoarthritis, left hip Kimberlyn Martin M.D. 12/13/2018 M25.552 Pain in left hip Kimberlyn Martin M.D. 09/27/2018 M25.552 Pain in left hip Kimberlyn Martin M.D. 09/27/2018 M16.12 Unilateral primary osteoarthritis, left hip Kimberlyn Martin M.D. Plan of Treatment Future Appointment(s):01/22/2019 8:00 am - Kimberlyn Martin M.D. at [facility] at Xorqbk3202/01/2019 2:30 pm - Kimberlyn Martin M.D. at [facility] at Yfwmdj2701/01/2019 - Mariah Joyce MDZ00.00 Encounter for general adult medical examination without abnormal vxarqwxfY35.818 Encounter for other preprocedural examinationNew Labs:Urinalysis Profile, Ordered: Comments:Please get your blood and urine test done.We will call you regarding your test results.K51.90 Ulcerative colitis, unspecified, without complicationsNew Labs:CBC Auto Diff, Ordered: 01/01/19Comp Metabolic Panel, Ordered: 01/01/19Hemoglobin A1c (Glyco HGB), Ordered: 01/01/19Lipid Profile ( Trig/Chol/HDL), Ordered: 01/01/19C Reactive Protein, Ordered: 01/01/19Comments: Follow up with Dr. Lai.Referral:Kaiden Lai M.D., Gastroenterology Functional Status Description No Information Available Mental Status Description No Information Available Referrals Refer to Reason for Referral Status Appt Date Kaiden Lai M.D. Patient requesting colonoscopy prior to Created appointment. He has appointmetn with Dr. Lai in late january. [address] [place] [address] [phone]
--- OUTSIDE RECORDS SUMMARY | 2019-02-01 09:38 | XMS REPORT | Continuity of Care Document ---
:1955 External Reference #:[id number] Author Name Kimberlyn Martin M.D. (transmitted by agent of provider Jyoti Parker) Address [address] [place] [address] Care Team Providers Name Role Phone Prosper Lofton MD - Hospitalist Care Team Information Retail Bakery Manager [phone] Problems Active Problems Provider Date Localized, primary osteoarthritis of the pelvic Kimberlyn Martin M.D. Onset: region and thigh Social History Type Date Description Comments Sex Unknown ETOH Use Occasionally consumes alcohol Tobacco Use Start: Unknown Patient has never smoked Smoking Status Reviewed: 01/22/19 Patient has never smoked Exercise Type/Frequency Exercises regularly Allergies, Adverse Reactions, Alerts Description No Known Drug Allergies Medications Active Medications SIG Qnty Indications Ordering Provider Date Celecoxib 1 tablet daily or 30caps Z01.818 [facility], 01/01/2019 200mg as needed. Capsules Tylenol PM 2 by mouth every Unknown Tablets night at bedtime as needed Omeprazole Take 1 Capsule By Unknown 40mg Mouth Every Day Capsules DR Pham Unknown 10mg Tablets Lialda 2 twice a day Unknown 1.2gm Tablets Ondansetron HCL one by mouth Unknown 4mg every 8 hours as Tablets needed for nausea Naltrexone Low Dose Unknown 4.5mg Powder Immunizations CPT Code Status Date Vaccine Reaction Lot # [id number] Given 01/01/2019 Influenza Virus Vaccine, no immediate reaction. [id number] Quadrivalent (Cciiv4), dg Derived From Cell Vital Signs Date Vital Result Comment 01/22/2019 8:01am Height 66.25 inches 5'6.25" Weight 147.00 lb Heart Rate 48 /min BP Systolic 118 mmHg BP Diastolic 60 mmHg Respiratory Rate 18 /min Body Temperature 97.0 F Pain Level 5 BMI (Body Mass Index) 23.5 kg/m2 01/01/2019 8:04am Height 66.25 inches 5'6.25" Weight 149.00 lb Heart Rate 60 /min BP Systolic Sitting 116 mmHg BP Diastolic Sitting 77 mmHg Body Temperature 97.0 F O2 % BldC Oximetry 97 % BMI (Body Mass Index) 23.9 kg/m2 Results Test Acquired Date Facility Test Result H/L Range Note CBC Auto 01/03/2019 [facility] White Blood 8.1 10^3/uL Normal 3.5-10.[address] [place] [address] [phone] Red Blood Count 4.17 10^6/uL Low 4.18-5.48 Hemoglobin 11.6 g/dL Low 14.0-18.0 Hematocrit 35 % Low 42-52 Mean Corpuscular Volume 85 fL Normal 80-94 Mean Corpuscular Hemoglobin 28 pg Normal 27-31 Mean Corpuscular HGB Conc 33 g/dL Normal 31-36 Red Cell Distribution Width 14 % Normal 10-15 Platelet Count 359 10^3/uL Normal 150-450 Mean Platelet Volume 7.1 fL Low 7.4-10.4 Abs Neutrophils 5.7 10^3/uL Normal 1.5-7.7 Abs Lymphocytes 1.8 10^3/uL Normal 1.0-4.8 Abs Monocytes 0.4 10^3/uL Normal 0-0.8 Abs Eosinophils 0.1 10^3/uL Normal 0-0.6 Abs Basophils 0.1 10^3/uL Normal 0-0.2 Abs Nucleated RBC 0.0 10^3/uL Granulocyte % 69.7 % Lymphocyte % 22.7 % Monocyte % 5.3 % Eosinophil % 1.6 % Basophil % 0.7 % Nucleated Red Blood Cells % 0.0 Comp Metabolic 01/03/2019 [facility] Sodium 138 mmol/L Normal 135-[address] [place] [address] [phone] Potassium 4.0 mmol/L Normal 3.5-5.0 Chloride 105 mmol/L Normal 101-111 Co2 Carbon Dioxide 27 mmol/L Normal 22-32 Anion Gap 6 mmol/L Normal 2-11 Glucose 94 mg/dL Normal 70-100 Blood Urea Nitrogen 15 mg/dL Normal 6-24 Creatinine 0.88 mg/dL Normal 0.67-1.17 BUN/Creatinine Ratio 17.0 Normal 8-20 Calcium 9.3 mg/dL Normal 8.6-10.3 Total Protein 7.0 g/dL Normal 6.4-8.9 Albumin 3.8 g/dL Normal 3.2-5.2 Globulin 3.2 g/dL Normal 2-4 Albumin/Globulin Ratio 1.2 Normal 1-3 Total Bilirubin 0.40 mg/dL Normal 0.2-1.0 Alkaline Phosphatase 84 U/L Normal 34-104 Alt 10 U/L Normal 7-52 Ast 16 U/L Normal 13-39 Egfr Non- 88.0 >60 Egfr 106.5 >60 1 Laboratory test 01/03/2019 [facility] Hemoglobin A1c 6.0 % High 4.0-5.6 2 finding 101 (Glyco HGB) [place] [address] [phone] Lipid Profile 01/03/2019 [facility] Triglycerides 125 3 (Trig/Chol/HDL) 101 mg/[place] [address] [phone] Cholesterol 154 mg/dL 4 HDL Cholesterol 37.5 mg/dL 5 LDL Cholesterol 92 mg/dL 6 Laboratory test 01/03/2019 [facility] C Reactive 15.60 mg/L High <8.01 finding [address] [place] [address] [phone] Urinalysis 01/03/2019 [facility] Urine Color Lynsey Profile [address] [place] [address] [phone] Urine Appearance Cloudy Urine Specific [place] 1.027 Normal 1.010-1.030 Urine pH 5.0 Normal 5-9 Urine Urobilinogen Negative Negative Urine Ketones Negative Negative Urine Protein Negative Negative Urine Leukocytes Negative Negative Urine Blood 1+ Abnormal Negative * * Abnormal Negative 7 Urine Nitrite Negative Negative Urine Bilirubin Negative Negative Urine Glucose Negative Negative Urine White Blood Cell Absent Absent Urine Red Blood Cell 1+(3-5/hpf) Abnormal Absent Urine Bacteria Absent Absent Urine Squamous Epithelial Cell Present Abnormal Absent Comp Metabolic 12/02/2018 [facility] Sodium 138 mmol/L Normal 135-[address] [place] [address] [phone] Potassium 3.5 mmol/L Normal 3.5-5.0 Chloride 103 [...] Egfr Non- 82.6 >60 Egfr 99.9 >60 8 Laboratory test 12/02/2018 [facility] C Reactive 20.17 mg/L High <8.[address] [place] [address] [phone] CBC Auto Diff 12/02/2018 [facility] White Blood 16.2 High 3.5- 10.[address] Count 10^3/[place] [address] [phone] Red Blood Count 4.50 10^6/uL Normal 4.18-5.48 [...] 15-29 5 Kidney failure <15 (or dialysis) 2 Therapeutic target for the treatment of diabetes mellitus patients is <7% HBA1C, and in selective patients <6.0%. Please refer to [place] [employer] diabetic care guidelines for further information. 3 Desirable: <150 Borderline High: 150-199 High: 200-499 Very High: >500 4 Desirable: <200 Borderline High: 200-239 High: >239 5 Low: <40 Desirable: 40-60 High: >60 6 Desirable: <100 Near Optimal: 100-129 Borderline High: 130-159 High: 160-189 Very High: >189 7 *Ascorbic acid is present which may interfere with detection of blood. 8 Because ethnic data is not always readily [...] dialysis) Procedures Date Code Description Status 01/01/2019 31862 EKG Tracing & Interpretation Completed Medical Devices Description No Information Available Encounters Type Date Location Provider Dx Diagnosis Office Visit 12/13/2018 [facility] Kimberlyn Martin, S70.02xA Contusion of 10:15a at [place] M.D. left hip, initial encounter M16.12 Unilateral primary osteoarthritis, left hip M25.552 Pain in left hip Office Visit 09/27/2018 9:30a [facility] M25.552 Pain in left at [facility] hip M16.12 Unilateral primary osteoarthritis, left hip Assessments Date Code Description Provider 01/22/2019 M16.12 Unilateral primary osteoarthritis, left hip Kimberlyn Martin M.D. 01/22/2019 M25.552 Pain in left hip Kimberlyn Martin M.D. 01/01/2019 Z01.818 Encounter for other preprocedural examination Mariah Joyce MD 01/01/2019 M16.12 Unilateral primary osteoarthritis, left hip Mariah Joyce MD 01/01/2019 K51.90 Ulcerative colitis, unspecified, without Mariah Joyce MD complications 01/01/2019 R00.1 Bradycardia, unspecified Mariah Joyce MD 01/01/2019 Z23 Encounter for immunization Mariah Joyce MD 12/13/2018 S70.02xA Contusion of left hip, initial encounter Kimberlyn Martin M.D. 12/13/2018 M16.12 Unilateral primary osteoarthritis, left hip Kimberlyn Martin M.D. 12/13/2018 M25.552 Pain in left hip Kimberlyn Martin M.D. 09/27/2018 M25.552 Pain in left hip Kimberlyn Martin M.D. 09/27/2018 M16.12 Unilateral primary osteoarthritis, left hip Kimberlyn Martin M.D. Plan of Treatment Future Appointment(s):02/01/2019 3:30 pm - Manny Vences PA-C at [facility] at Dlufmf8502/01/2019 3:30 pm - GABBY Reid at [facility] at Pwgkew0502/01/2019 3:30 pm - Kimberlyn Martin M.D. at [facility] at Pemuyn5401/22/2019 - Kimberlyn Martin M.D.M16.12 Unilateral primary osteoarthritis, left hipFollow up:Follow up: 2 weeks after gqnvgnhO60.552 Pain in left hip Functional Status Description No Information Available Mental Status Description No Information Available Referrals Refer to Dr Reason for Referral Status Appt Date Kaiden Lai M.D. Patient requesting colonoscopy prior to Sent appointment. He has appointmetn with Dr. Lai in late january. [address] [place], [place] [address] [phone]
--- OUTSIDE RECORDS SUMMARY | 2019-02-01 09:39 | XMS REPORT | Continuity of Care Document ---
:1955 External Reference #:[id number] Author Name Kimberlyn Martin M.D. (transmitted by agent of provider Ivon Galdamez) Address [address] [place] [address] Care Team Providers Name Role Phone Bethany Jack MD - Family Care Team Information Human Resources Team Member Medicine Problems Active Problems Provider Date Localized, primary osteoarthritis of the pelvic Kimberlyn Martin M.D. Onset: region and thigh Social History Type Date Description Comments Sex Unknown ETOH Use Occasionally consumes alcohol Tobacco Use Start: Unknown Patient has never smoked Smoking Status Reviewed: 12/13/18 Patient has never smoked Exercise Type/Frequency Exercises regularly Allergies, Adverse Reactions, Alerts Description No Known Drug Allergies Medications Active Medications SIG Qnty Indications Ordering Provider Date Tylenol PM 2 by mouth every Unknown Tablets night at bedtime as needed Omeprazole Take 1 Capsule By Unknown 40mg Capsules Mouth Every Day DR Pham Unknown 10mg Tablets Lialda 2 twice a day Unknown 1.2gm Tablets DR Goldberg Description No Information Available Vital Signs Date Vital Result Comment 12/13/2018 10:32am Height 66.25 inches 5'6.25" Weight 147.00 lb Heart Rate 72 /min BP Systolic 128 mmHg BP Diastolic 80 mmHg Body Temperature 97.6 F Pain Level 6 BMI (Body Mass Index) 23.5 kg/m2 09/27/2018 10:09am Height 66.25 inches 5'6.25" Weight 157.25 lb Heart Rate 76 /min BP Systolic 126 mmHg BP Diastolic 74 mmHg Respiratory Rate 12 /min Pain Level 2 BMI (Body Mass Index) 25.2 kg/m2 Results Test Acquired Date Facility Test Result H/L Range Note Comp Metabolic 12/02/2018 [facility] Sodium 138 mmol/L Normal 135-[address] [place] [address] [phone] Potassium 3.5 mmol/L Normal 3.5-5.0 Chloride 103 [...] Egfr 99.9 >60 1 Laboratory test 12/02/2018 [facility] C Reactive 20.17 mg/L High <8.[address] [place] [address] [phone] CBC Auto Diff 12/02/2018 [facility] White Blood 16.2 High 3.5- 10.[address] Count 10^3/[place] [address] [phone] Red Blood Count 4.50 10^6/uL Normal 4.18-5.48 [...] 5 Kidney failure <15 (or dialysis) Procedures Description No Information Available Medical Devices Description No Information Available Encounters Type Date Location Provider Dx Diagnosis Office Visit [facility]/13[facility]2018 [facility] M16.12 [facility] M25.552 Pain in left hip Office Visit 09/27/2018 9:30a [facility] Kimberlyn Martin M25.552 [facility]12 Unilateral primary osteoarthritis, left hip Assessments Date Code Description Provider 12/13/2018 M16.12 Unilateral primary osteoarthritis, left hip Kimberlyn Martin M.D. 12/13/2018 M25.552 Pain in left hip Kimberlyn Martin M.D. 09/27/2018 M25.552 Pain in left hip Kimberlyn Martin M.D. 09/27/2018 M16.12 Unilateral primary osteoarthritis, left hip Kimberlyn Martin M.D. Plan of Treatment Future Appointment(s):12/15/2018 9:00 am - Prosper Lofton MD at [facility] - [address] 03/25/2018 8:00 am - Kimberlyn Martin M.D. at [facility] at Sbtkux1602/01/2019 2:30 pm - Kimberlyn Martin M.D. at [facility] at Jplzzi0012/13/2018 - Kimberlyn Martin M.D.M16.12 Unilateral primary osteoarthritis, left hipNew Xrays:MRI Hip Left W/O, Ordered: 12/13/18Follow up: Follow up: after MRIM25.552 Pain in left hipNew Xrays:Hip Left 2 Views And Pelvis [address] - [address], Ordered: 12/13/18 Functional Status Description No Information Available Mental Status Description No Information Available Referrals Description No Information Available
[2019-02-01] MEDS ORDERED: Midazolam* 1 MG/ML 5 ML VIAL (5 MG) ONE (11:32)
[2019-02-01] MEDS ORDERED: KETAMINE HCL* 50 MG/ML 10 ML VIAL ONE (11:32)
[2019-02-01] MEDS ORDERED: fentaNYL* 50 MCG/ML 2 ML VIAL (100 MCG VIAL) ONE ×3 (11:32→16:58)
[2019-02-01 11:34] LABS: INR 1.23 (0.82-1.09)
[2019-02-01] MEDS ORDERED: ROPIVACAINE 5 MG/ML 30 ML BTL (0.5%) ONE (13:03)
[2019-02-01] MEDS ORDERED: Rocuronium* 10 MG/ML VIAL ONE (13:45)
[2019-02-01] MEDS ORDERED: HYDROmorphone INJ1* 1 MG/ML SYRINGE ONE ×2 (14:25→16:27)
[2019-02-01] MEDS ORDERED: Lidocaine 2% PF * 5 ML VIAL ONE (15:17)
[2019-02-01] MEDS ORDERED: Propofol* 10 MG/ML 20 ML BTL ONE ×2 (15:17→15:50)
[2019-02-01] MEDS ORDERED: Glycopyrrolate IV* 0.2 MG/ML 1 ML VIAL ONE (15:17)
[2019-02-01] MEDS ORDERED: Neostigmine Methylsulfate* 1 MG/ML 10 ML VIAL (1 mg/ml) ONE (15:17)
[2019-02-01] MEDS ORDERED: Ondansetron ODT TAB* 4 MG PO PRN (16:01)
[2019-02-01] MEDS ORDERED: Morphine INJ* 2 MG/ML 1 ML SYRINGE (TWO MG - NEW SYRINGE VERSION) IV PRN (16:01)
[2019-02-01] MEDS ORDERED: Cyclobenzaprine TAB* 10 MG PO PRN (16:01)
[2019-02-01] MEDS ORDERED: oxyCODONE/Acetamin 5/325 MG* TAB PO PRN (16:01)
[2019-02-01] MEDS ORDERED: Ondansetron INJ* 2 MG/ML VIAL IV PRN (16:01)
[2019-02-01] MEDS ORDERED: Magnesium Hydroxide LIQ* 30 ML UDC PO PRN (16:01)
[2019-02-01] MEDS ORDERED: Acetaminophen TAB* 325 MG PO PRN (16:01)
[2019-02-01] MEDS ORDERED: diPHENhydraMINE IV* 50 MG/ML 1 ml VIAL (BENADRYL) IV PRN (16:01)
[2019-02-01] MEDS ORDERED: diPHENhydraMINE PO* 25 MG PO PRN (16:01)
[2019-02-01] MEDS ORDERED: SIMETHICONE PO ONE (16:05)
[2019-02-01] MEDS: HYDROmorphone INJ1* 1 MG/ML SYRINGE IV PRN ×3 (16:28→16:40)
[2019-02-01] MEDS: fentaNYL* 50 MCG/ML 2 ML VIAL (100 MCG VIAL) IV PRN ×5 (16:29→16:59)
[2019-02-01] MEDS: Lactated Ringers 1000 ML Bag* 1,000 ML IV SCH (17:45)
[2019-02-01] MEDS ORDERED: Ondansetron INJ* 2 MG/ML VIAL ONE (17:57)
[2019-02-01] MEDS: oxyCODONE/Acetamin 5/325 MG* TAB PO PRN ×2 (18:45→23:01)
--- NOTE | 2019-02-01 19:01 | OP ---
Operative Report - Blank - Operative Report Date of Operation: 02/01/19 Note: NOEMY LINDSAY 1955 Date Of Surgery: 02/01/19 Kimberlyn Martin MD Senior Quality Manager: Betito PIERRE did help throughout the procedure with preparation of the hip, wound retraction, manipulation of the hip, and wound closure. Anesthesiologist: Jeremías Motta MD Anesthesia Type: Spinal Preoperative Diagnosis: Left severe degenerative osteoarthritis of the hip Postoperative Diagnosis: As above Procedure Performed: Left Total Hip Arthroplasty Complications: None Specimen: Femoral head and acetabular reamings sent to pathology. Hardware used: This is uncemented [place] total hip arthroplasty hardware for the femur a size 5 accolade II 127 neck angle femoral component, for the acetabulum a size 52E trident II tritanium cluster hole shell, one 15 mm screw, for the insert a size 36E trident X3 polyethylene insert, and for the femoral head a size 36 +0 ceramic biolox V40 femoral head. Brief history/Indication: NOEMY LINDSAY was known in clinic and had a history of severe left hip pain. He failed conservative treatment with anti- inflammatories, pain pills, intra-articular injections and physical therapy. He elected to undergo left total hip arthroplasty due to continued pain and decreased quality of life. Radiographs showed severe end stage osteoarthritis of the hip with bone on bone contact. Informed consent was obtained from the patient. He understood the risks of surgery included but were not limited to: bleeding, infection, damage to nearby structures, intraoperative fracture, nerve palsy, failure of the hardware, early loosening, stiffness or loss of motion, dislocation, leg length discrepancy, anesthesia complications, stroke, heart attack, blood clot and . He wished to proceed. Intra-Operative findings: Intraoperatively the patient was noted to have severe loss of cartilage of the acetabulum and femoral head. Description of the Procedure: NOEMY LINDSAY was identified in the preanesthesia unit. His left hip was marked as the correct operative side. Informed consent was signed and placed in the chart. The patient was taken to the operating room and placed under anesthesia without complication. A ramos catheter was placed. The patient was placed on the peg board with all bony prominences well padded. The left lower extremity was prepped and draped in the usual sterile fashion. Preoperative time -out was made to correctly identify the patient, side and site. Appropriate intraoperative antibiotics were given within one hour of incision. A standard posterior incision was made and carried sharply down to the lateral fascia. A new 10 blade was used to make an incision in the fascia in line with the skin incision. A charnley retractor was placed. The piriformis and conjoined tendons were identified and elevated off the posterolateral femur using electrocautery. These were tagged with number 5 Ethibond. Next electrocautery was used to make a posterolateral capsular flap and this was tagged with number 5 Ethibonds. The hip was carefully dislocated. Lesser trochanter to the center of the femoral head was measured at 60 mm. The oscillating saw was used to make the femoral neck cut. The femoral head was carefully removed. The femur was retracted anteriorly and the acetabular retractors were placed. Long-handled knife was used to sharply remove any remaining labrum from the acetabular rim. The acetabulum was sequentially reamed up to a size 52. A bleeding subchondral bone bed was obtained. A trial liner was placed and had excellent fit and stability. A 52E cup with one screw was placed and had excellent stability with appropriate anteversion and abduction angle. A size 36E liner was impacted into the acetabular shell. The liner was checked for stability and was stable. Next attention was turned to preparation of the femoral canal. A canal finder was used to enter the proximal femur. The femoral canal was sequentially broached up to a size 5 femoral broach trial. A trial neck and 36 + 0 trial femoral head was chosen. Lesser trochanter to center of the femoral head measurement was satisfactory. The hip was reduced and taken through a range of motion. The hip was stable in all positions with good soft tissue tension and appropriate leg lengths. The hip was dislocated and all trials were removed. The final implant chosen was a accolade II size 5. This stem was impacted into the femoral canal without difficulty. The stem was stable with appropriate anteversion. The femoral head chosen was a 36 +0 ceramic head. The head was impacted onto the femoral neck without difficulty. The final lesser trochanter to center of the femoral head measurement was satisfactory. The hip was reduced and taken through a range of motion. The hip was stable in all positions with good soft tissue tension and appropriate leg lengths. The hip was copiously irrigated with sterile saline. The previously tagged capsule and tendons were repaired to the posterolateral femur through two trochanteric drill holes. The lateral fascia layer was closed using number 1 vicryls. The rest of the incision was closed in a layered fashion using 0 and 2-0 vicryls. The skin was closed using 3-0 monocryl suture and Dermabond. Sterile adaptic, 4x4s and paper tape was used to cover the incision. The patients anesthesia was reversed without difficulty. He was taken to the PACU in stable condition. Intended weight-bearing will be as tolerated with posterior hip precautions.
[2019-02-01] MEDS ORDERED: NALTREXONE PO SCH (21:00)
[2019-02-01] MEDS ORDERED: MELATONIN PO SCH (21:00)
[2019-02-01] MEDS ORDERED: PYRIDOXINE HCL PO SCH (21:00)
[2019-02-01] MEDS: Magnesium Hydroxide LIQ* 30 ML UDC PO SCH (21:02)
[2019-02-01] MEDS: oxyCODONE TAB* 5 MG TAB PO PRN (21:02)
[2019-02-01] MEDS: Docusate CAP* 100 MG PO SCH (21:02)
[2019-02-01] MEDS: TOFACITINIB CITRATE 5 MG PO SCH (21:49)
[2019-02-01] MEDS: ceFAZolin 1 GM ADVAN(*) 1 GM in NS 0.9% 50 ML* 50 ML IVPB SCH (22:13)
[2019-02-02] MEDS: Lactated Ringers 1000 ML Bag* 1,000 ML IV SCH (04:03)
[2019-02-02] MEDS: oxyCODONE/Acetamin 5/325 MG* TAB PO PRN ×3 (04:04→12:25)
[2019-02-02] MEDS: Ondansetron ODT TAB* 4 MG SL PRN ×2 (04:04→13:01)
[2019-02-02] MEDS: ceFAZolin 1 GM ADVAN(*) 1 GM in NS 0.9% 50 ML* 50 ML IVPB SCH ×2 (06:08→14:08)
[2019-02-02] MEDS: oxyCODONE TAB* 5 MG TAB PO PRN ×3 (06:13→14:39)
[2019-02-02 07:05] LABS: Hematocrit 29 % (42-52); Hemoglobin 9.8 g/dL (14.0-18.0); Mean Platelet Volume 6.9 fL (7.4-10.4); Platelet Count 350 10^3/uL (150-450)
[2019-02-02 07:21] LABS: Calcium 8.7 mg/dL (8.6-10.3); EGFR African American 97.5 (>60); EGFR Non-African American 80.6 (>60); Potassium 4.4 mmol/L (3.5-5.0)
[2019-02-02] MEDS: Magnesium Hydroxide LIQ* 30 ML UDC PO SCH (08:07)
[2019-02-02] MEDS: Docusate CAP* 100 MG PO SCH (08:07)
[2019-02-02] MEDS: TOFACITINIB CITRATE 5 MG PO SCH (08:08)
[2019-02-02] MEDS ORDERED: Apixaban* 2.5 MG TAB PO SCH (09:00)
[2019-02-02] MEDS ORDERED: Vitamin THERAPEUTIC TAB PO SCH (09:00)
--- NOTE | 2019-02-02 10:27 | PN ---
Progress Note - Progress Note Date of Service: 02/02/19 SOAP: Subjective: [Pt was seen today sitting up in bed. States that he is doing well. Pain is well controlled. Denies any chest pain, SOB, nausea, vomiting. He states he would like to go home today. ] Objective: [MSK:LLE: Inspection of the left hip reveals dressing is c/d/i. Dressing is changed. Incision is c/d/i without drainage or purulence. +df/pf. NVI distally. 2+ DP pulse. ] Vital Signs Temp 99.7 F 02/02/19 08:15 Pulse 99 02/02/19 08:15 Resp 18 02/02/19 10:32 BP 144/79 02/02/19 08:15 Pulse Ox 100 02/02/19 08:15 Intake & Output 02/01/19 02/02/19 02/02/19 18:59 06:59 18:59 Intake Total 1632 590 Output Total 650 275 Balance 982 315 Weight 143 lb 6.4 oz Intake: IV Fluids 1032 535 ABX - CEFAZOLIN 52 LR 980 535 IVPB 55 ABX - CEFAZOLIN 55 Oral 600 Output: Urine 275 Abdalla 650 Assessment: [POD 1 LTHA] Plan: PT/OT Continue with pain medication Continue with Eliquis Possible DC today should PT go well ]
--- NOTE | 2019-02-02 15:11 | DS ---
Orthopedic Discharge Summary - Discharge Summary Date of Admission:02/01/19 Date of Discharge: 02/02/2019 Date of Surgery: 02/01/2019 Attending Orthopedic Provider: Dr. Martin Pre-operative Diagnosis: Left hip osteoarthritis Operative Procedure: Left total hip arthroplasty Disposition of Patient: Home Condition of Patient: Good History: NOEMY LINDSAY is a 63 year old M with years of increasingly severe left hip pain. Patient has failed conservative management and has elected to undergo a left total hip replacement Hospital Course: NOEMY was admitted to [facility] on 02/01/19. Patient underwent a left total hip replacement without complication followed by a brief recovery in PACU and transfer to the Short Stay Surgical Unit in stable condition. Our hospitalist service, physical therapy and occupational therapy also participated in this patients care. Post-op day 1: patient was alert and in no acute distress. Dressing was clean, dry and intact. Operative extremity dorsiflexion and plantarflexion intact, sensation intact to light touch distally , DP2+. Dressing was changed, incision was clean, dry and intact. Patient was deemed to be medically and orthopedically stable for discharge. Physical therapy goals were met. Home Medications Medication Instructions Recorded Confirmed Type Mesalamine 4 tab PO QAM 12/02/18 01/22/19 History Omeprazole 40 mg PO QAM 12/02/18 01/22/19 History Tofacitinib Citrate Xeljanz 5 mg PO BID 12/02/18 01/22/19 History Acetaminophen/Diphenhydramine 2 tab PO BEDTIME 01/22/19 01/22/19 History [Acetaminophen-Diphenhyd 500-25] Celebrex CAP* 1 cap PO QAM 01/22/19 01/22/19 History L.acidoph,Paracasei, B.lactis 1 each PO QPM 01/22/19 01/22/19 History [Probiotic] Melatonin/Pyridoxine HCl (B6) 1 tab PO BEDTIME 01/22/19 02/01/19 History [Melatonin 5 mg Tablet] Naltrexone TAB* 4.5 mg PO BEDTIME 01/22/19 01/22/19 History Ondansetron ODT TAB* [Zofran 4 MG 8 mg SL Q6H PRN 01/22/19 01/22/19 History Odt TAB*] Simethicone [Gas-X] 1 cap PO 02/01/19 History Apixaban* [Eliquis*] 2.5 mg PO BID tab 02/02/19 Rx oxyCODONE/Acetamin 5/325 MG* 1 tab PO Q4H PRN tab 02/02/19 Rx [Percocet 5/325 TAB*] oxyCODONE/Acetamin 5/325 MG* 2 tab PO Q4H PRN tab 02/02/19 Rx [Percocet 5/325 TAB*] Discharge Instructions following Orthopedic Surgery: Activity: * Weight Bearing as tolerated * Continue physical therapy and occupational therapy exercises as shown Wound care: * OK to shower on post-op day 3, no bathing, swimming, or submerging wound. * Use gentle soap, pat dry. Cover with gauze, CHELO wrap or tape. * Visiting home nurse to do wound checks. Call Orthopedic office for: * Increased drainage * Redness * Increased pain * Fever Go to ER with shortness of breath or chest pain. Diet: * Regular diet * Increase fluids and fiber to prevent constipation. * Continue to use stool softeners, call office if no bowel motion within 48 hours. Medications See Home Medication List in your packet for medications that you should take after discharge. DVT Prophylaxis: Eliquis Dosin.5 mg, 1 tab every 12 hours x 30 days Pain Control: Percocet Dosin/325 mg 1-2 tabs by mouth every 4-6 hours as needed for pain. Maximum of 10 tabs per day. Please note that Percocet contains Tylenol (acetaminophen). Maximum daily dose of Tylenol is 4000 mg from all sources. Zofran 4 mg as needed for nausea Antibiotics are required prior to any dental work. FOLLOW UP: Follow up with [Mario] Within 10-14 days, call for appointment Please call our office with any questions or concerns ([phone]) Hip replacements: Continue Hip Precautions- do not cross legs or bend greater than 90 degrees/squat
[2019-02-02 15:46] VITALS: BP 120/65
== END 2019-02-02 16:15 | disposition home or self-care (01) | DRG 470 ==
LOC: AA 09:35 → SSU 17:45
PROVIDERS: ADMIT Orthopaedic Surgery Adult Reconstructive Orthopaedic Surgery; ATTEND Orthopaedic Surgery Adult Reconstructive Orthopaedic Surgery
PROC: 0SRB04A Replacement of Left Hip Joint with Ceramic on Polyethylene Synthetic Substitute, Uncemented, Open Approach (ICD-10-PCS; principal; 2019-02-01 12:45)
DX: M16.12 Unilateral primary osteoarthritis, left hip (principal); K51.90 Ulcerative colitis, unspecified, without complications; K21.9 Gastro-esophageal reflux disease without esophagitis; Z85.828 Personal history of other malignant neoplasm of skin; Z79.899 Other long term (current) drug therapy
CPT/HCPCS: 36415; 72170; 80048; 85014; 85018; 85049; 85610; 88304; 88311; A9270-GY; C1713; C1776; J0690; J1170; J2250; J2405; J2704; J2710; J2795; J3010; J8540

== ENCOUNTER 2019-04-05 09:00 | Day surgery (SDC) | payer OTHER ==
[~2019-04-05 09:00] MED LIST changes: -Acetaminophen TAB* 325 MG PO ONE; -Dexamethasone TAB* 4 MG PO ONE; -DiMENhydriNATE IV* 50 MG/ML VIAL IV PUSH PRN; -Famotidine IV* 10 MG/ML 2 ML (20 mg) IV ONE; -Gabapentin CAP(*) 300 MG PO ONE; -Naloxone* 0.4 MG/ML 1 ML VIAL IV PRN; -Ondansetron ODT TAB* 4 MG PO ONE; -PROCHLORPERAZINE INJ 5 MG/ML 2 ML VIAL IV PRN; -Tranexamic Acid 1,000 MG in NS 0.9% 50 ML* (outpatient use) IV SCH; -celeCOXIB CAP* 200 MG PO ONE; -oxyCODONE TAB* 5 MG TAB PO PRN
[2019-04-05] MEDS ORDERED: Acetaminophen TAB* 325 MG PO PRN (09:19)
[2019-04-05] MEDS ORDERED: Acetaminophen TAB* 325 MG ONE (10:06)
[2019-04-05] MEDS ORDERED: Midazolam* 1 MG/ML 5 ML VIAL (5 MG) ONE (10:42)
[2019-04-05] MEDS ORDERED: Propofol* 10 MG/ML 20 ML BTL ONE (11:20)
[2019-04-05] MEDS ORDERED: Lidocaine 2% PF * 5 ML VIAL ONE (11:20)
[2019-04-05] MEDS ORDERED: Ondansetron INJ* 2 MG/ML VIAL ONE (11:20)
[2019-04-05 13:07] VITALS: BP 138/86
--- NOTE | 2019-04-06 00:28 | PRO ---
CC: Dr. Arias, Resident Clinic * COLONOSCOPY REPORT: DATE OF PROCEDURE: 04/05/19 INDICATION FOR PROCEDURE: Ulcerative colitis. PROCEDURE PERFORMED: Incomplete colonoscopy to the sigmoid colon limited by adhesions, with biopsies. MEDICATIONS GIVEN: Please see anesthesia record. DESCRIPTION OF PROCEDURE: After the colonoscopy procedure, including the risks , benefits, and alternatives with the risks not limited to perforation, surgery , missed lesions, and/or were explained to the patient, written informed consent was obtained, IV medication was given, and a rectal exam was performed. The rectal exam was unremarkable. The adult Olympus colonoscope was then inserted into the patient's rectum to about 25 cm. I was unable to advance any further. He had a very sharp angulation within the sigmoid that was quite tortuous. Despite multiple position changes and flooding the area with water, I was unable to traverse this area. I then switched to a pediatric colonoscope but still was unsuccessful in navigating this area. There were no signs of inflammation. His ulcerative colitis in the 25 cm view did appear to be in remission. I took biopsies at 25 cm, 15 cm and rectum in 4-quadrant fashion to evaluate his disease status. There were a few scattered diverticula throughout this area. The scope was then removed from the patient. He tolerated the procedure well. He returned to the recovery room in stable condition. IMPRESSION: 1. Incomplete colonoscopy to the sigmoid colon limited by adhesions. 2. Biopsies to evaluate for ulcerative colitis, activity at 25, 15 and rectum. 3. No macroscopic evidence of disease activity. 4. Very tortuous sigmoid with a fixed sharp angulation, unable to traverse safely. RECOMMENDATIONS: He does have ulcerative colitis and would really like to evaluate the disease activity on the right side of the colon and also to evaluate for dysplasia. He may need assistance with either an enteroscope or other assist device to have a successful colonoscopy. We will plan on referring him to [place] on the next 6 months or so for an evaluation at a tertiary care center to see if they can success with colonoscopy there. We will follow up on the results of the biopsies. At this point, he seems to be in remission with his ulcerative colitis and is feeling quite well. Recommend fiber on a daily basis given the tortuosity of the sigmoid. In addition, we will continue the Xeljanz and Lialda. I will see him in follow up in the office in about a month. [id number]/[facility] #: [id number] [facility] HOSPITALChely
== END 2019-04-05 13:05 | disposition home or self-care (01) ==
LOC: OR 09:00
PROVIDERS: ATTEND Internal Medicine Gastroenterology
DX: K51.90 Ulcerative colitis, unspecified, without complications (principal); K66.0 Peritoneal adhesions (postprocedural) (postinfection); F41.9 Anxiety disorder, unspecified; M19.90 Unspecified osteoarthritis, unspecified site; Z96.641 Presence of right artificial hip joint
CPT/HCPCS: 88305; A9270-GY; J2250; J2405; J2704

== ENCOUNTER 2020-11-23 11:16 | Inpatient (IN) ==
[2020-11-23] MEDS ORDERED: Lactated Ringers 1000 ml BAG 1,000 ML IV ONE ×2 (12:28→17:13)
[2020-11-23] MEDS ORDERED: Ondansetron 4 mg VIAL 2 MG/ML 2 ml VIAL IV ONE ×2 (13:44→16:33)
[2020-11-23] MEDS ORDERED: HYDROmorphone 1 MG/1 ML SYRINGE IV ONE ×2 (13:44→17:13)
[2020-11-23 13:54] LABS: ABS Basophils 0.1 10^3/ul (0-0.2); ABS Lymphocytes 0.7 10^3/ul (1.0-4.8); ABS Monocytes 0.4 10^3/ul (0-0.8); ABS Neutrophils 12.1 10^3/ul (1.5-7.7); Eosinophil % 0.1 %; Hematocrit 38 % (42-52); Hemoglobin 12.6 g/dL (14.0-18.0); Lymphocyte % 5.4 %; Mean Corpuscular HGB Conc 33 g/dL (31-36); Mean Corpuscular Hemoglobin 28 pg (27-31); Mean Corpuscular Volume 83 fL (80-94); Mean Platelet Volume 6.6 fL (7.4-10.4); Platelet Count 380 10^3/uL (150-450); Red Blood Count 4.51 10^6 /uL (4.18-5.48); Red Cell Distribution Width 15 % (10-15); White Blood Count 13.3 10^3/uL (3.5-10.8)
[2020-11-23 14:13] LABS: ALT 11 U/L (7-52); AST 18 U/L (13-39); Albumin 4.2 g/dL (3.2-5.2); Albumin/Globulin Ratio 1.1 (1-3); Alkaline Phosphatase 135 U/L (35-149); Anion Gap 11 mmol/L (2-11); Blood Urea Nitrogen 17 mg/dL (6-24); C Reactive Protein 9.67 mg/L (<8.01); CO2 Carbon Dioxide 24 mmol/L (22-32); Chloride 101 mmol/L (101-111); Globulin 3.7 g/dL (2-4); Glucose 170 mg/dL (70-100); Lipase < 10 U/L (11.0-82.0); Potassium 3.6 mmol/L (3.5-5.0); Sodium 136 mmol/L (135-145); Total Protein 7.9 g/dL (6.4-8.9)
[2020-11-23 16:06] LABS: Urine Appearance Cloudy; Urine Bilirubin Negative (Negative); Urine Blood Negative (Negative); Urine Color Yellow; Urine Glucose Negative (Negative); Urine Ketones 1+ (Negative); Urine Nitrite Negative (Negative); Urine Protein 1+(30 mg/dL) (Negative); Urine Urobilinogen Negative (Negative)
[2020-11-23 16:36] LABS: Urine Bacteria Absent (Absent); Urine Red Blood Cell Absent (Absent); Urine Squamous Epithelial Cell Present (Absent); Urine White Blood Cell 1+(6-10/hpf) (Absent)
[2020-11-23] MEDS ORDERED: Metoclopramide 5 MG/ML VIAL (10 mg) IV ONE (17:13)
[2020-11-23 18:31] LABS: INR 1.29 (0.86-1.15)
[2020-11-23] MEDS ORDERED: oxyCODONE/Acetamin 5/325 mg TAB PO PRN ×2 (21:00→21:29)
[2020-11-23 21:53] LABS: Rapid COVID-19 Molecular Undetected (Undetected)
[2020-11-23] MEDS ORDERED: metroNIDAZOLE IV 500 MG/100ML - ED ONCE IVPB ONE (22:00)
[2020-11-23] MEDS ORDERED: cefTRIAXone 2 GM ADDV.VIAL 2 GM in NS 0.9% 100 ml BAG 100 ML IV ONE (22:00)
[2020-11-24] MEDS ORDERED: Lactated Ringers 1000 ml BAG 1,000 ML IV SCH (01:00)
[2020-11-24] MEDS: Enoxaparin 40 MG/0.4 ML SYR SUBCUT SCH ×2 (01:03→20:17)
[2020-11-24] MEDS: Ondansetron 4 mg VIAL 2 MG/ML 2 ml VIAL IV PRN ×2 (01:03→20:23)
[2020-11-24] MEDS ORDERED: Furosemide 40 mg/4 ml IV VIAL IV ONE (03:03)
[2020-11-24 04:16] LABS: Magnesium 1.9 mg/dL (1.9-2.7)
[2020-11-24] MEDS: metroNIDAZOLE IV 500 MG/100ML 500 MG/100 ML BAG IVPB SCH ×2 (05:06→16:26)
[2020-11-24 07:43] LABS: Calcium 9.7 mg/dL (8.6-10.3); Magnesium 1.9 mg/dL (1.9-2.7); Potassium 3.9 mmol/L (3.5-5.0)
[2020-11-24 07:45] LABS: ABS Lymphocytes 1.5 10^3/ul (1.0-4.8); ABS Monocytes 0.5 10^3/ul (0-0.8); ABS Neutrophils 8.6 10^3/ul (1.5-7.7); Hematocrit 35 % (42-52); Hemoglobin 11.7 g/dL (14.0-18.0); Lymphocyte % 13.8 %; Mean Corpuscular HGB Conc 34 g/dL (31-36); Mean Corpuscular Hemoglobin 28 pg (27-31); Mean Corpuscular Volume 84 fL (80-94); Nucleated Red Blood Cells % 0.1; Platelet Count 387 10^3/uL (150-450); Red Blood Count 4.12 10^6 /uL (4.18-5.48); Red Cell Distribution Width 15 % (10-15); White Blood Count 10.6 10^3/uL (3.5-10.8)
[2020-11-24] MEDS ORDERED: DULoxetine DR 60 mg CAP PO SCH (09:00)
[2020-11-24] MEDS ORDERED: Flu vaccine *QUAD* 2021-22* 0.5 ML SYRINGE IM ONE (09:00)
[2020-11-24] MEDS: ENZALUTAMIDE 40 MG PO SCH (19:40)
[2020-11-24] MEDS: DULoxetine DR 60 mg CAP PO SCH (20:17)
[2020-11-24] MEDS ORDERED: cefTRIAXone 2 GM ADDV.VIAL 2 GM in NS 0.9% 100 ml BAG 100 ML IV SCH (21:00)
[2020-11-25] MEDS: Ondansetron 4 mg VIAL 2 MG/ML 2 ml VIAL IV PRN (00:49)
[2020-11-25] MEDS ORDERED: Al Hydrox/Mg Hydrox/Simet LIQ 30 ML UDC PO ONE (02:28)
[2020-11-25] MEDS ORDERED: Metoclopramide 5 MG/ML VIAL (10 mg) IV SLOW PU ONE (02:30)
[2020-11-25] MEDS ORDERED: NS 0.9% 500 ml BAG 500 ML IV ONE (02:31)
[2020-11-25] MEDS ORDERED: NS 0.9% 1000 ml BAG 1,000 ML IV SCH (02:45)
[2020-11-25 06:06] LABS: Hematocrit 33 % (42-52); Hemoglobin 11.1 g/dL (14.0-18.0); Mean Corpuscular HGB Conc 34 g/dL (31-36); Mean Corpuscular Hemoglobin 29 pg (27-31); Mean Corpuscular Volume 84 fL (80-94); Mean Platelet Volume 6.8 fL (7.4-10.4); Platelet Count 306 10^3/uL (150-450); Red Blood Count 3.88 10^6 /uL (4.18-5.48); Red Cell Distribution Width 15 % (10-15); White Blood Count 10.5 10^3/uL (3.5-10.8)
[2020-11-25 06:30] LABS: Calcium 9.2 mg/dL (8.6-10.3); Potassium 3.8 mmol/L (3.5-5.0)
[2020-11-25] MEDS ORDERED: Morphine 2 MG/ML SYRINGE IV ONE (08:56)
[2020-11-25] MEDS: Pantoprazole VIAL 40 MG VIAL IV SCH ×2 (10:40→21:37)
[2020-11-25] MEDS: Amoxicillin/Clavul 875/125 TAB (Augmentin 875 tab) PO SCH ×3 (10:41→21:36)
[2020-11-25] MEDS: ENZALUTAMIDE 40 MG PO SCH (10:44)
[2020-11-25] MEDS: Sucralfate 1 gm SUSP 1 GM/10 ML UDC PO SCH ×3 (12:37→21:37)
[2020-11-25] MEDS: DULoxetine DR 60 mg CAP PO SCH (21:36)
[2020-11-25] MEDS: Enoxaparin 40 MG/0.4 ML SYR SUBCUT SCH (21:37)
[2020-11-26] MEDS: Ondansetron 4 mg VIAL 2 MG/ML 2 ml VIAL IV PRN ×2 (03:37→10:59)
[2020-11-26] MEDS: Pantoprazole VIAL 40 MG VIAL IV SCH (08:09)
[2020-11-26] MEDS: Amoxicillin/Clavul 875/125 TAB (Augmentin 875 tab) PO SCH ×2 (08:10→12:49)
[2020-11-26] MEDS: Sucralfate 1 gm SUSP 1 GM/10 ML UDC PO SCH ×2 (08:10→10:44)
[2020-11-26] MEDS: ENZALUTAMIDE 40 MG PO SCH (09:02)
[2020-11-26 09:50] LABS: Hematocrit 34 % (42-52); Hemoglobin 11.6 g/dL (14.0-18.0); Mean Corpuscular HGB Conc 34 g/dL (31-36); Mean Corpuscular Hemoglobin 29 pg (27-31); Mean Corpuscular Volume 84 fL (80-94); Mean Platelet Volume 6.6 fL (7.4-10.4); Platelet Count 338 10^3/uL (150-450); Red Blood Count 4.02 10^6 /uL (4.18-5.48); Red Cell Distribution Width 15 % (10-15)
[2020-11-26 10:06] LABS: Calcium 9.5 mg/dL (8.6-10.3); Potassium 3.1 mmol/L (3.5-5.0)
[2020-11-26] MEDS ORDERED: Potassium Chlor 20 meq TAB.ER PO ONE (10:28)
[2020-11-26 13:05] VITALS: BP 158/82
== END 2020-11-26 13:00 | disposition home or self-care (01) | DRG 249 ==
LOC: ED 11:16 → MED 20:48 → SUATTDRO 20:48 → MED 11-24 00:05
PROVIDERS: ADMIT Internal Medicine; ATTEND Student in an Organized Health Care Education/Training Program

== ENCOUNTER 2021-06-04 09:46 | Observation (INO) ==
[2021-06-04] MEDS ORDERED: Lactated Ringers 1000 ml BAG 1,000 ML IV ONE (10:00)
[2021-06-04] MEDS ORDERED: Ondansetron 4 mg VIAL 2 MG/ML 2 ml VIAL IV ONE (10:23)
[2021-06-04] MEDS ORDERED: Morphine 4 MG/ML VIAL (1 ml) IV ONE (10:23)
[2021-06-04 10:24] LABS: ABS Basophils 0.1 10^3/ul (0-0.2); ABS Lymphocytes 1.5 10^3/ul (1.0-4.8); ABS Monocytes 0.6 10^3/ul (0-0.8); ABS Neutrophils 6.9 10^3/ul (1.5-7.7); Eosinophil % 0.2 %; Hematocrit 35 % (42-52); Hemoglobin 12.2 g/dL (14.0-18.0); Lymphocyte % 16.5 %; Mean Corpuscular HGB Conc 35 g/dL (31-36); Mean Corpuscular Hemoglobin 29 pg (27-31); Mean Corpuscular Volume 83 fL (80-94); Mean Platelet Volume 6.7 fL (7.4-10.4); Platelet Count 329 10^3/uL (150-450); Red Blood Count 4.25 10^6 /uL (4.18-5.48); Red Cell Distribution Width 14 % (10-15)
[2021-06-04 11:33] LABS: Albumin 3.8 g/dL (3.2-5.2); Albumin/Globulin Ratio 1.3 (1-3); Calcium 9.3 mg/dL (8.6-10.3); Globulin 2.9 g/dL (2-4); Potassium 3.5 mmol/L (3.5-5.0); Total Bilirubin 0.5 mg/dL (0.2-1.0); Total Protein 6.7 g/dL (6.4-8.9); eGFR CKD-EPI 106.9 (>60)
[2021-06-04] MEDS ORDERED: Iohexol 300 (CONTRAST) 10 ML SDV IV ONE (11:40)
[2021-06-04] MEDS ORDERED: Metoclopramide 5 MG/ML VIAL (10 mg) IV SLOW PU ONE (12:21)
[2021-06-04] MEDS ORDERED: Al Hydrox/Mg Hydrox/Simet LIQ 30 ML UDC PO ONE (13:31)
[2021-06-04 14:37] LABS: C Reactive Protein 1.64 mg/L (<8.01)
[2021-06-04] MEDS ORDERED: Metoclopramide 5 MG/ML VIAL (10 mg) IV PRN (15:06)
[2021-06-04] MEDS ORDERED: oxyCODONE/Acetamin 5/325 mg TAB PO PRN (15:51)
[2021-06-04] MEDS ORDERED: Enoxaparin 40 MG/0.4 ML SYR SUBCUT SCH (16:00)
[2021-06-04] MEDS: Sucralfate 1 gm SUSP 1 GM/10 ML UDC PO SCH ×2 (18:33→22:06)
[2021-06-04] MEDS: Lactated Ringers 1000 ml BAG 1,000 ML IV SCH (21:11)
[2021-06-05 07:06] LABS: ABS Basophils 0.1 10^3/ul (0-0.2); ABS Lymphocytes 2.3 10^3/ul (1.0-4.8); ABS Monocytes 0.5 10^3/ul (0-0.8); ABS Neutrophils 4.5 10^3/ul (1.5-7.7); Eosinophil % 0.5 %; Hematocrit 36 % (42-52); Hemoglobin 12.3 g/dL (14.0-18.0); Lymphocyte % 31.1 %; Mean Corpuscular HGB Conc 34 g/dL (31-36); Mean Corpuscular Hemoglobin 29 pg (27-31); Mean Corpuscular Volume 84 fL (80-94); Mean Platelet Volume 7.5 fL (7.4-10.4); Nucleated Red Blood Cells % 0.1; Platelet Count 359 10^3/uL (150-450); Red Blood Count 4.26 10^6 /uL (4.18-5.48); Red Cell Distribution Width 14 % (10-15); White Blood Count 7.5 10^3/uL (3.5-10.8)
[2021-06-05 07:21] LABS: Calcium 9.3 mg/dL (8.6-10.3); Potassium 3.6 mmol/L (3.5-5.0); eGFR CKD-EPI 104.4 (>60)
[2021-06-05] MEDS: Lactated Ringers 1000 ml BAG 1,000 ML IV SCH (07:26)
[2021-06-05] MEDS ORDERED: ENZALUTAMIDE 40 MG PO SCH (09:00)
[2021-06-05] MEDS ORDERED: Multivitamins/Minerals TAB PO SCH (09:00)
[2021-06-05] MEDS ORDERED: DULoxetine DR 60 mg CAP PO SCH (09:00)
[2021-06-05] MEDS: Sucralfate 1 gm SUSP 1 GM/10 ML UDC PO SCH ×2 (10:51→13:10)
[2021-06-05 11:20] VITALS: BP 150/86
== END 2021-06-05 15:00 | disposition home or self-care (01) ==
LOC: ED 09:46 → EDHOLD 09:46 → SUATTDRO 15:08 → EDHOLD 18:44 → MED 20:25
PROVIDERS: ADMIT Nurse Practitioner; ATTEND Hospitalist